=== PATIENT | male | born 1950 | race Caucasian/White ===

== ENCOUNTER 2025-06-19 15:28 | Outpatient (CLI) | payer MEDICARE, OTHER, SELFPAY ==
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
[2025-07-02 12:08] LABS: A -- Beta-amyloid 42/40 Ratio 0.114 (>0.102); Beta-amyloid 40 152.39 pg/mL (.); Beta-amyloid 42 17.40 pg/mL (.)
== END 2025-06-19 15:29 | disposition home or self-care (01) ==
PROVIDERS: Visit Provider Psychiatry & Neurology Neurology
DX: G20.A1 Parkinson's disease without dyskinesia, without mention of fluctuations (principal); G31.84 Mild cognitive impairment of uncertain or unknown etiology; G47.33 Obstructive sleep apnea (adult) (pediatric)
CPT/HCPCS: 83520